=== PATIENT | male | born 1995 | race African-American/Black ===

== ENCOUNTER 2020-01-13 15:03 | Emergency (ER) | payer MEDICAID, OTHER ==
[~2020-01-13] VITALS: Ht 190.5 cm; Wt 79.4 kg
[2020-01-13 15:08] VITALS: BP 123/65
--- NOTE | 2020-01-13 16:12 | NUR ---
PATIENT LEFT FACILITY AT THIS TIME, ERMD MADE AWARE
[2020-01-13 16:15] VITALS: BP 123/65
== END 2020-01-13 16:12 | disposition left against medical advice (07) ==
LOC: MED 15:03
DX: Z48.00 Encounter for change or removal of nonsurgical wound dressing (principal); Z53.1 Procedure and treatment not carried out because of patient's decision for reasons of belief and group pressure

== ENCOUNTER 2021-07-15 10:23 | Emergency (ER) | payer OTHER ==
[~2021-07-15] VITALS: Ht 190.5 cm; Wt 94.3 kg
[2021-07-15 10:29] VITALS: BP 142/86
--- NOTE | 2021-07-15 10:35 | NUR ---
PT AMBULATED TO ER BED 3 WITH A STEADY GAIT.
--- NOTE | 2021-07-15 10:47 | NUR ---
25 Y/O MALE C/O CONGESTION WITH A DRY NON-PRODUCTIVE DRY COUGH X3 DAYS. PT DENIES RX PIOR TO [facility]. PT STATES "I FEEL LIKE MY THROAT IS CLOSING SOMETIMES." DENIES FEVER/CHILLS. DENIES N/V/D. PT SPO2 98% IN TRIAGE. PT LUNGS ARE CLEAR TO AUSCULTATION, NO SIGNS OF RESPIRATORY DISTRESS AT THIS TIME. PMH: ASTHMA NKA
--- NOTE | 2021-07-15 11:16 | NUR ---
DR OKEEFE AT PT BEDSIDE FOR FURTHER EVALUATION.
--- NOTE | 2021-07-15 11:39 | NUR ---
IVÁN SOARES WALKED TO LAB GAVE TO [employer].
--- NOTE | 2021-07-15 11:46 | NUR ---
PLANT INSPECTOR AT PT BEDSIDE.
[2021-07-15] MEDS ORDERED: NAPR-54 PO (12:23)
[2021-07-15] MEDS ORDERED: OXYM15SP72 NS (12:23)
[2021-07-15 12:27] VITALS: BP 142/86
--- NOTE | 2021-07-15 12:27 | NUR ---
Patient discharged with v/s stable. Written and verbal after care instructions given FOR UPPER RESPIRATORY INFECTION and explained. Patient alert, oriented and verbalized understanding of instructions. Ambulatory with steady gait. All questions addressed prior to discharge. ID band removed. Patient advised to follow up with PMD. Rx of NAPROXEN AND AFRIN given. Patient educated on indication of medication including possible reaction and side effects. Opportunity to ask questions provided and answered.
== END 2021-07-15 12:27 | disposition home or self-care (01) ==
LOC: MED 10:23
DX: J06.9 Acute upper respiratory infection, unspecified (principal); Z20.822 Contact with and (suspected) exposure to COVID-19; J45.909 Unspecified asthma, uncomplicated; Z79.899 Other long term (current) drug therapy
CPT/HCPCS: 71045; 99284

== ENCOUNTER 2021-09-04 07:53 | Emergency (ER) | payer OTHER ==
[~2021-09-04] VITALS: Ht 190.5 cm; Wt 90.5 kg
[~2021-09-04 07:53] MED LIST: NAPR-54 PO; OXYM15SP72 NS
[2021-09-04 07:54] VITALS: BP 125/77
--- NOTE | 2021-09-04 08:03 | NUR ---
PT AMB TO BED 7.
--- NOTE | 2021-09-04 08:10 | NUR ---
DR HARDY AT BEDSIDE.
[2021-09-04] MEDS ORDERED: IBUPROFEN 600 MG TAB PO ONE (08:15)
[2021-09-04] MEDS ORDERED: guaiFENesin DM 200/20 MG-10 ML 10 ML UDC PO ONE (08:15)
[2021-09-04] MEDS ORDERED: predniSONE 20 MG TAB PO ONE (08:20)
[2021-09-04] MEDS ORDERED: ALBUTEROL SULFATE/IPRATROPIU 3 ML SOL IH ONE (08:20)
--- NOTE | 2021-09-04 08:20 | NUR ---
X-RAY AT [facility].
--- NOTE | 2021-09-04 08:26 | NUR ---
RT AT BEDSIDE.
--- NOTE | 2021-09-04 08:30 | NUR ---
Discussed with patient history of asthma - use of inhaler at home - history of use of nebulizers at home - and counseled patient regarding irritating the lungs with inhalation of substances that will aggravate his asthma further - considering refraining of smoking substances that will initiate further asthma related events.
--- NOTE | 2021-09-04 08:31 | NUR ---
25 Y/O M BIB SELF C/O HEADACHE X 4 DAYS AND COUGH , LEFT CHEST, LEFT MID BACK PAIN X 1 WEEK. NKA NO MEDS PMH: ASTHMA
[2021-09-04] MEDS ORDERED: AZIT250T3 PO (08:36)
[2021-09-04] MEDS ORDERED: PRED20TA5 PO (08:36)
[2021-09-04 08:54] VITALS: BP 125/77
--- NOTE | 2021-09-04 08:55 | NUR ---
Patient discharged with v/s stable. Written and verbal after care instructions given and explained. Patient alert, oriented and verbalized understanding of instructions. Ambulatory with steady gait. All questions addressed prior to discharge. ID band removed. Patient advised to follow up with PMD. Rx of AZITHROMYCIN, PREDNISONE given. Opportunity to ask questions provided and answered.
--- NOTE | 2021-09-04 08:56 | NUR ---
Chart checked and completed. The patient's care was reviewed and supervised by Romana Donovan RN.
== END 2021-09-04 08:55 | disposition home or self-care (01) ==
LOC: MED 07:53
DX: J45.909 Unspecified asthma, uncomplicated (principal); M79.10 Myalgia, unspecified site; R51.9 Headache, unspecified
CPT/HCPCS: 71045; 94640; 94664; 99284; J7512

== ENCOUNTER 2022-01-09 03:10 | Emergency (ER) | payer OTHER ==
[~2022-01-09] VITALS: Ht 190.5 cm; Wt 93.0 kg
[~2022-01-09 03:10] MED LIST changes: +AZIT250T3 PO; +PRED20TA5 PO
--- NOTE | 2022-01-09 03:10 | NUR ---
PT BIB [facility], PREBOOK. TAKEN TO CHAIR
[2022-01-09 03:15] VITALS: BP 141/63
--- NOTE | 2022-01-09 03:30 | NUR ---
Dr. Thompson examining patient.
[2022-01-09] MEDS ORDERED: ACET-10509 PO (04:06)
[2022-01-09] MEDS ORDERED: BACI1PAC6 TP (04:06)
--- NOTE | 2022-01-09 04:11 | NUR ---
Dr. Thompson : procedure - staple laceration wound, patient tolerated well.
[2022-01-09] MEDS ORDERED: LIDOCAINE MPF 1% 5 ML ONE (04:18)
[2022-01-09 04:28] VITALS: BP 132/71
--- NOTE | 2022-01-09 04:28 | NUR ---
Patient D/C to custody.
[2022-01-09] MEDS: LIDOCAINE/EPI 1% 1:100000 20 ML VIAL INJ ONE (04:30)
[2022-01-09] MEDS: LIDOCAINE MPF 1% 10 MG/ML VIAL INJ ONE (04:36)
== END 2022-01-09 04:28 ==
LOC: MED 03:10
DX: S01.01XA Laceration without foreign body of scalp, initial encounter (principal); Z02.89 Encounter for other administrative examinations; J45.909 Unspecified asthma, uncomplicated; Z79.899 Other long term (current) drug therapy; Z79.2 Long term (current) use of antibiotics; Z79.1 Long term (current) use of non-steroidal anti-inflammatories (NSAID); W01.198A Fall on same level from slipping, tripping and stumbling with subsequent striking against other object, initial encounter; Y92.89 Other specified places as the place of occurrence of the external cause; Y93.89 Activity, other specified; Y99.8 Other external cause status
CPT/HCPCS: 12001; 99283; J2001